=== PATIENT | male | born 1960 | race African-American/Black ===

== ENCOUNTER 2018-02-11 20:56 | Emergency (ER) | payer SELFPAY ==
[2018-02-11] MEDS: diazePAM 5 MG TABLET PO (21:25)
[2018-02-11] MEDS: KETOROLAC 60 MG/2 ML INJ. IM (21:26)
[2018-02-11] MEDS: MORPHINE SULFATE 10 MG/ML VIAL. IM (21:28)
== END 2018-02-11 21:39 | disposition home or self-care (01) ==
LOC: ER 21:39
DX: M54.5 Low back pain (principal); M62.830 Muscle spasm of back
CPT/HCPCS: 96372; 99284; J1885; J2270